=== PATIENT | female | born 1985 | race Caucasian/White ===

== ENCOUNTER → 2020-01-09 07:43 | Outpatient (BNVA) | payer OTHER, SELFPAY | PROVIDERS: PCP Family Medicine; Visit Provider Nurse Practitioner Psychiatric/Mental Health | DX: Z79.899 Other long term (current) drug therapy (principal); F31.64 Bipolar disorder, current episode mixed, severe, with psychotic features; F43.12 Post-traumatic stress disorder, chronic; F41.1 Generalized anxiety disorder; F50.81 Binge eating disorder; F17.210 Nicotine dependence, cigarettes, uncomplicated | CPT/HCPCS: 99213 ==

== ENCOUNTER → 2020-07-03 10:41 | Outpatient (BNVA) | payer OTHER, SELFPAY | PROVIDERS: Visit Provider Nurse Practitioner Psychiatric/Mental Health | DX: Z79.899 Other long term (current) drug therapy (principal) | CPT/HCPCS: 80053; 80061; 83036 ==

== ENCOUNTER → 2021-06-16 09:25 | Outpatient (BNVA) | payer OTHER, SELFPAY | PROVIDERS: Referring Provider Nurse Practitioner; Visit Provider Podiatrist Foot & Ankle Surgery | DX: M79.671 Pain in right foot (principal) | CPT/HCPCS: 73630 ==

== ENCOUNTER 2021-06-20 13:50 | Inpatient (IN) | payer OTHER, SELFPAY ==
[2021-06-20] VITALS (16 sets, daily range): BP systolic 111–143; BP diastolic 65–93; PULSE 73–130; RESP 16–53; TEMP 37.3; O2SAT 70–100
--- NOTE | 2021-06-20 14:17 | XR_ITS ---
WS: [id number] XR chest 1V portable [id number] REASON FOR EXAM: dyspnea FINDINGS: No examination for comparison. The heart and mediastinum are within normal limits. Bilateral diffuse reticular and groundglass opacities in both lungs. The bony thorax is intact. XR/XR chest 1V portable [id number] IMPRESSION: Diffuse pulmonary opacities of unknown chronicity however, highly likely this r epresents subacute pneumonitis.
--- NOTE | 2021-06-20 14:42 | CT_ITS ---
WS: [id number] CTA OF THE CHEST WITH PULMONARY EMBOLISM PROTOCOL TECHNIQUE: High-resolution contrast enhanced CTA of the chest with coronal and sagittal reformatted i mages with pulmonary embolism protocol. MIP images are also reviewed. CLINICAL INFORMATION: chest discomfort - covid COMPARISON: None. DLP: 528.[address] scans at [facility] use at least one of these dose optimization techniques: automated e xposure control; mA and/or kV adjustment per patient size (includes targeted exams where dose is matc hed to clinical indication); or iterative reconstruction. FINDINGS: Some images degraded by body habitus and beam hardening artifact. Diffuse hazy bilateral groundglass infiltrates throughout both lungs compatible with Covid 19 pneumon ia. Proximal main pulmonary arteries are normal. Segmental pulmonary arteries appear normal. No evide nce of proximal pulmonary embolus. Distal vessels are not well evaluated. Reactive mediastinal and peribronchial lymphadenopathy. No axillary lymphadenopathy. Hepatomegaly wit h diffuse fatty infiltration. Gallbladder is contracted. Adrenal glands are normal. CT/CT angio chest PE protcl [id number] IMPRESSION: 1. No evidence of proximal pulmonary embolus. Distal most vessels not well shayan luated. 2. Diffuse bilateral hazy groundglass infiltrates compatible with Lawrence 19 pne umonia. 3. Reactive anterior mediastinal and peribronchial lymphadenopathy. 4. Hepatomegaly with diffuse fatty infiltration.
--- NOTE | 2021-06-20 14:47 | ED_ITS ---
HPI - COVID General: Chief Complaint: COVID symptoms Stated Complaint: COVID + Time Seen by Provider: 06/20/21 14:14 Triage information: Has fever, cough or shortness of breath . Exposure to COVID + person last 14 days History of Present Illness: HPI Narrative: 36-year-old female presents emergency room from the infusion clinic with O2 sat 70% on room air heart rate in 130s with moderate respiratory distress. Patient tested positive for COVID 2 days ago symptoms started 5 days ago. She has a nonproductive cough myalgias low-grade fever diarrhea headache chest congestion. She has previously been vaccinated and had booster for COVID. MD complaint: known COVID positive Prior covid testing: no COVID 19 common symptoms: positive fever(s), chills, dyspnea, fatigue, body aches, nasal congestion and nausea; negative non-productive cough, productive cough, throat pain, vomiting or diarrhea COVID 19 other sytmptoms: negative chest pain COVID Results: No Data to Display Review of Systems Const: Reports: fever(s), chills, body aches, change in appetite, fatigue and malaise ENMT: Reports: nasal discharge and nasal congestion; Denies: throat pain or ear or mastoid pain Card: Reports: dyspnea on exertion; Denies: chest pain, edema or orthopnea Resp: Reports: dyspnea; Denies: productive cough or non-productive cough GI: Reports: nausea; Denies: abdominal pain, vomiting, hematemesis, coffee ground emesis, diarrhea, constipation, bloating, hematochezia or melena : Denies: flank pain, difficulty voiding, dysuria, urinary frequency or urinary urgency Skin/Breast: Denies: rash or pruritus PFSH ED PFSH: Medical History (Updated 07/01/21 @ 07:12 by Kvng Dejesus DO) Asthma Binge eating disorder Bipolar disorder, current episode mixed, severe, without psychotic features Borderline personality disorder Chronic post-traumatic stress disorder Generalized anxiety disorder on prn valium Nicotine dependence, cigarettes, uncomplicated Encourage smoking cessation. Provide nicotine patch Psychiatric care PTSD (post-traumatic stress disorder) Social History Smoking and tobacco status: current every day smoker Physical Exam Const: GENERAL APPEARANCE: cooperative and comfortable ORIENTATION/CONSCIOUSNESS: Yes awake, Yes oriented to person, Yes oriented to place and Yes oriented to time HENMT: COMMON NORMALS: normocephalic, atraumatic and hearing grossly normal bilaterally HEAD & SCALP: normocephalic and atraumatic Resp: AUSCULTATION: crackles and wheezes Cardio: COMMON NORMALS: regular rate, regular rhythm and No murmurs present (Cardio) RATE: regular rate and tachycardic RHYTHM: regular rhythm GI: COMMON NORMALS: Soft to palpation and No hepatosplenomegaly present AUSCULTATION: Yes normoactive bowel sounds PALPATION: Yes Soft to palpation, No Tenderness to palpation present (GI), No Guarding due to palpation present (GI) and Yes No hepatosplenomegaly present Extremity: COMMON NORMALS: normal to inspection, capillary refill normal, no clubbing, cyanosis or edema, no calf tenderness and no pedal edema Neuro: SENSORIUM/ORIENTATION: Yes oriented to person, Yes oriented to place and Yes oriented to time Skin: COMMON NORMALS: no rashes or lesions noted GENERAL SKIN EXAM: no rashes or lesions noted Course Vital Signs: Vital signs: Vital Signs Temperature 98.5 F 06/24/21 17:30 Pulse Rate 87 06/25/21 13:55 Respiratory Rate 18 06/25/21 13:55 Blood Pressure 143/88 06/25/21 08:00 Pulse Oximetry 99 06/25/21 13:55 MDM - COVID MDM Narrative Medical decision making narrative: Patient in acute respiratory distress with O2 sats in 70% on room air she is placed on heated high flow on arrival with some improvement. Discussed with hospitalist will admit for Covid pneumonitis with acute respiratory failure with hypoxia. Medical Records Attestation: I reviewed the patient's medical records. Lab Data Attestation: I reviewed the patient's lab results. Result diagrams: 06/25/21 04:24 06/25/21 04:24 Labs: Lab Results 06/20/21 14:40 Specimen Type Arterial Sample Site Radial, left ABG pH 7.40 (7.35-7.45) ABG pCO2 33.9 mmHg L mmHg (35-45) ABG pO2 91.5 mmHg mmHg (80.0-100.0) ABG HCO3 21.0 mmol/L L mmol/L (22-26) ABG O2 Saturation 98.0 ABG Base Excess -3.3 mmol/L L mmol/L (-2.0-2.0) Antoni Test Pos A-a O2 Gradient 33.3 mmHg H mmHg (5-10) Hematocrit 25.8 % L % (37-47) Hgb O2 Saturation 95.5 % % (95-100) Carboxyhemoglobin 2.0 %THgb %THgb (0.4-20.1) Methemoglobin 0.5 % % (0.4-1.5) Total Hemoglobin 8.4 g/dL L g/dL (12-16) Sodium 149.0 mmol/L H mmol/L (131-143) Potassium 3.4 mmol/L L mmol/L (3.5-5.0) Glucose 168.0 mg/dL H mg/dL (70-115) Ionized Calcium 1.3 mmol/L mmol/L (1.1-1.4) O2 Delivery Device Hag O2 Liters/Min 40.0 % % FiO2 55.0 % % Barrel Lathe Operator Outside ID Cak COVID Results: No Data to Display Discharge Plan Discharge Patient Disposition: Admitted As Inpatient Admit Provider: Margy Quiñonez Clinical Impression: COVID-19, Acute respiratory failure with hypoxia Condition: Stable Coding Level of Care Code ED Veterinary Technologist for [facility]
[2021-06-20 14:53] LABS: ABG PCO2 33.9 mmHg (35-45); Alveolar-Arterial Oxygen Gradi 33.3 mmHg (5-10); Arterial Blood Gas Hematocrit 25.8 % (37-47); Base Excess ABG -3.3 mmol/L (-2.0-2.0); Blood Gas Allen Test Pos; Blood Gas Operator Identificat CAK; Blood Gas Sample Site Radial, left; Blood Gas Sample Type Arterial; HGB O2 Sat 95.5 % (95-100); Ionized Calcium Level - ABG 1.3 mmol/L (1.1-1.4); Methemoglobin 0.5 % (0.4-1.5); Oxygen Device HAG; PO2 ABG 91.5 mmHg (80.0-100.0); Potassium Level - ABG 3.4 mmol/L (3.5-5.0); Total Hemoglobin 8.4 g/dL (12-16)
[2021-06-20] MEDS: iohexol 350 mg/mL 100 mL Btl IV (15:14)
[2021-06-20] MEDS: remdesivir 200 MG in sodium chloride 0.9% (100 ml) 60 ML 100 MG IV (16:43)
[2021-06-20] MEDS: dexamethasone 10 mg/mL INJ 6 MG IVP (16:43)
[2021-06-20 16:54] LABS: Basophils % 0.1 %; Hematocrit 29.7 % (37.0-47.0); Lymphocytes % 6.4 %; Mean Corpuscular HGB Conc 26.9 g/dL (30.0-36.0); Mean Corpuscular Hemoglobin 19.2 pg (28.0-34.0); Mean Corpuscular Volume 71.2 fl (81-99); Mean Platelet Volume 10.5 fL (7.4-10.4); Monocytes # 0.6 10^3/uL (0.2-0.9); Monocytes % 3.9 %; Neutrophils # 14.47 10^3/uL (1.8-7.7); Nucleated Red Blood Cells % 0 %; Platelet Count 378 10^3/cmm (130-400); Red Blood Count 4.17 10^6/uL (4.1-5.3); Red Cell Distribution Width 19.6 % (12.1-15.1); White Blood Count 16.3 10^3/uL (4.0-10.0)
[2021-06-20 17:06] LABS: D Dimer 1.05 ug/mIFEU (0-0.59)
[2021-06-20 17:14] LABS: Alanine Aminotransferase 14 U/L (0-33); Albumin Level 3.7 g/dL (3.5-5.2); Alkaline Phosphatase 91 IU/L (35-105); Anion Gap 18.7 (5-19); Aspartate Amino Transferase 28 U/L (0-32); Blood Urea Nitrogen 10 mg/dL (6-20); C Reactive Protein 119.8 mg/L (0.0-4.9); Calcium 8.1 mg/dL (8.5-10.5); Carbon Dioxide 21 mmol/L (22-29); Chloride 109 mmol/L (98-107); Globulin 2.4 g/dL (1.3-4.6); Glomerular Filtration Rate 114.4 mL/min (90-130); Glucose 125 mg/dL (65-115); Osmolality Calculated 301 mOsm/kg (285-295); Potassium 3.7 mmol/L (3.5-5.1); Sodium 145 mmol/L (136-145); Total Bilirubin 0.2 mg/dL (0.15-1.2); Total Protein 6.1 g/dL (6.6-8.7)
[2021-06-20 17:21] LABS: Procalcitonin 0.13 ng/mL (0-0.5)
--- NOTE | 2021-06-20 18:26 | PC.NURSE ---
Pt placed in prone position with heated high flow
[2021-06-20 18:30] LABS: Lactic Sepsis W/Reflex 1.1 mmol/L (0.5-2.2)
--- NOTE | 2021-06-20 18:33 | PM.HP ---
Providers/Chief Complaint Chief Complaint: COVID + History of Present Illness Josie Rosales is a 36 year old female who was sent to ED from antibody infusion clinic after noted to have sats of 70 percent and tachypnea and tachycardia. Patient apparently has had symptoms for past 5 days. She is vaccinated for COVID. She tested positive 2 days ago. Evaluation in ED reveals hypoxic acute respiratory failure requiring high flow oxygen and CTA consistent with bilateral ground glass opacities , negative for PE- patient requiring admission to ICU. Review of Systems General: Reports: ROS unobtainable due to medical condition Medications/Allergies Home Medications Medication Instructions Recorded Confirmed Last Taken Type lisdexamfetamine 30 mg capsule 30 mg PO QAM 30 Days #30 cap 04/28/21 06/20/21 06/20/21 Rx olanzapine 5 mg disintegrating 5 mg PO DAILY PRN #15 tab 05/22/21 06/20/21 Unknown Rx tablet albuterol sulfate 90 mcg/actuation 2 puff INHALATION Q6H PRN 06/16/21 06/20/21 Unknown History aerosol inhaler gabapentin 400 mg capsule See Rx Instructions .ROUTE 06/16/21 06/20/21 06/20/21 09:00 History .COMPLEX cap ipratropium 0.5 mg-albuterol 3 mg 3 ml INHALATION Q4H PRN 06/16/21 06/20/21 Unknown History (2.5 mg base)/3 mL nebulization soln benzonatate 100 mg capsule 100 mg PO TID PRN 10 Days #30 cap 06/19/21 06/20/21 06/20/21 06:00 Rx Depakote 250 mg PO DAILY@19 06/20/21 06/20/21 06/19/21 History Valium 2 mg PO TID@08,14,20 06/20/21 06/20/21 06/20/21 09:00 History Vitamin D3 1 cap PO DAILY 06/20/21 06/20/21 Unknown History acetaminophen [Tylenol Ex Str 1,000 mg PO Q4H PRN 06/20/21 06/20/21 Unknown History Rapid Release] ascorbic acid (vitamin C) [Vitamin 500 mg PO DAILY 06/20/21 06/20/21 Unknown History C] azithromycin See Rx Instructions .ROUTE .COMPLEX 06/20/21 06/20/21 06/20/21 History 1 tab rx filled 06/19 diclofenac sodium 2 g TOPICAL QID PRN 06/20/21 06/20/21 Unknown History divalproex [Depakote] 500 mg PO DAILY@19 06/20/21 06/20/21 06/19/21 History ibuprofen 800 mg PO Q4H PRN 06/20/21 06/20/21 Unknown History metoprolol tartrate 12.5 mg PO BID PRN 06/20/21 06/20/21 Unknown History prednisone 10 mg PO DAILY 06/20/21 06/20/21 Unknown History prednisone See Rx Instructions .ROUTE .COMPLEX 06/20/21 06/20/21 06/20/21 History 30 mg promethazine-DM 5 - 10 ml PO Q4H PRN 06/20/21 06/20/21 06/20/21 11:00 History topiramate 100 mg PO BID 06/20/21 06/20/21 06/20/21 History zinc 50 mg PO DAILY 06/20/21 06/20/21 Unknown History Allergies Allergy/AdvReac Type Severity Reaction Status Date / Time lithium Allergy Severe Hives, Verified 06/20/21 16:35 Headaches, Throat swells sumatriptan [From Imitrex] Allergy Severe Hives, Verified 06/20/21 16:35 Headaches, Throat swells PFSH Acute PFSH: Medical History (Updated 06/21/21 @ 08:56 by Margy Quiñonez MD) Asthma Binge eating disorder Bipolar disorder, current episode mixed, severe, without psychotic features Borderline personality disorder Chronic post-traumatic stress disorder Generalized anxiety disorder Resume prn valium Nicotine dependence, cigarettes, uncomplicated Encourage smoking cessation. Provide nicotine patch Psychiatric care PTSD (post-traumatic stress disorder) Social History Smoking and tobacco status: current every day smoker Vitals/I&O/Wt Last Vital Signs Pulse 99 06/20/21 15:48 Resp 20 H 06/20/21 15:48 BP 127/78 06/20/21 13:54 Pulse Ox 98 06/20/21 15:48 Physical Exam Narrative: EXAM NARRATIVE: Ill appearing, hypoxic, tachypneic HENMT: COMMON NORMALS: normocephalic and atraumatic Eye: COMMON NORMALS: Equal, round and reactive pupils present, EOMs intact bilaterally and no scleral icterus Neck/C-Spine: COMMON NORMALS: full ROM, no lymphadenopathy, supple and no JVD Resp: EFFORT & INSPECTION: Yes tachypneic and Yes respiratory distress AUSCULTATION: wheezes lower bilaterally Cardio: COMMON NORMALS: regular rate and regular rhythm OTHER: tachycardic GI: COMMON NORMALS: Soft to palpation and no masses Extremity: COMMON NORMALS: normal to inspection, full ROM and no pedal edema Neuro: COMMON NORMALS: patient oriented x3 and moves all extremities Psych: APPEARANCE: Yes grossly normal Skin: COMMON NORMALS: no rashes or lesions noted and no wounds Data : 06/21/21 05:13 06/21/21 05:13 Micro: Microbiology 06/20/21 18:06 Blood Culture - Preliminary Blood SPECIMEN COLLECTED 06/20/21 18:02 Blood Culture - Preliminary Blood SPECIMEN COLLECTED A&P Assessment and plan (1) Acute respiratory failure due to severe acute respiratory syndrome coronavirus 2 (SARS-CoV-2) infection: Patient is 36 year old patient, previously vaccinated for COVID who presented for monoclonal antibody infusion after testing positive for COVID 2 days ago. Patient noted to be markedly hypoxic and ABG reveals ph of 7.40, PCO2 of 33 and PO2 of 91 on Fio2 of 55 percent and 40 L/min She is notably tachypneic and tachycardic Patient at high risk for further deterioration possibly requiring intubation/mechanical ventilation Monitor in ICU Decadron IV Remdesivir Empiric antibiotic coverage with rocephin and zithromax Nebs Bronchodilators Status: Acute (2) Generalized anxiety disorder: Status: Chronic (3) Nicotine dependence, cigarettes, uncomplicated: Nicotine patch Status: Chronic Additional A&P Information Code status- Full DVT prophylaxis- SQ heparin GI- protonix Attestations Medical Necessity Statement*: Patient requring admission for management of acute hypoxic respiratory failure due to severe COVID Coding Level of Care Code Acute Sack Cleaning Hand for [facility] Fwd Exam Comprehensive Diagnoses Acute respiratory failure due to severe acute respiratory syndrome coronavirus 2 (SARS-CoV-2) infection U07.1; J96.00 Generalized anxiety disorder F41.1 Nicotine dependence, cigarettes, uncomplicated F17.210
--- NOTE | 2021-06-20 18:44 | PC.NURSE ---
Pt placed on heated high flow oxygen shortly after arrival into room and has continued through stay. Pt currently in prone position to maintain SpO2 sat levels.
--- NOTE | 2021-06-20 18:47 | PC.NURSE ---
Vital signs printed out and scanned into chart. All vital signs include heated high flow at 40LPM and 60 FiO2.
[2021-06-20] MEDS: acetaminophen 500 mg Tablet 1000 MG PO (23:15)
[2021-06-20] MEDS: gabapentin 400 mg Capsule 1200 MG PO (23:37)
[2021-06-20] MEDS: divalproex DR 250 mg Tablet 750 MG PO (23:37)
[2021-06-20] MEDS: ipratropium-albuterol 3 mL Neb INHALATION (23:56)
[2021-06-21] VITALS (39 sets, daily range): BP systolic 94–169; BP diastolic 53–101; PULSE 69–97; RESP 17–55; TEMP 36.5–37.3; O2SAT 77–100
[2021-06-21] MEDS: benzonatate 100 mg Capsule PO ×3 (01:00→19:47)
[2021-06-21] MEDS: diazePAM 2 mg Tablet PO ×3 (01:07→19:48)
[2021-06-21] MEDS: albuterol 8 gm MDI 2 PUFF INHALATION (02:59)
[2021-06-21] MEDS: acetaminophen 500 mg Tablet 1000 MG PO ×2 (03:13→10:16)
[2021-06-21 05:58] LABS: Basophils % 0.1 %; Hematocrit 26.2 % (37.0-47.0); Hemoglobin 7.1 g/dL (11.5-15.3); Lymphocytes # 1.8 10^3/uL (0.8-4.8); Lymphocytes % 14.8 %; Mean Corpuscular HGB Conc 27.1 g/dL (30.0-36.0); Mean Corpuscular Volume 70.1 fl (81-99); Mean Platelet Volume 10.5 fL (7.4-10.4); Monocytes # 0.5 10^3/uL (0.2-0.9); Monocytes % 4.2 %; Neutrophils # 9.89 10^3/uL (1.8-7.7); Neutrophils % 80.4 %; Nucleated Red Blood Cells % 0 %; Platelet Count 269 10^3/cmm (130-400); Red Blood Count 3.74 10^6/uL (4.1-5.3); Red Cell Distribution Width 19.5 % (12.1-15.1); White Blood Count 12.3 10^3/uL (4.0-10.0)
[2021-06-21 06:21] LABS: Anion Gap 16.6 (5-19); Blood Urea Nitrogen 11 mg/dL (6-20); Calcium 8.4 mg/dL (8.5-10.5); Carbon Dioxide 21 mmol/L (22-29); Chloride 108 mmol/L (98-107); Glomerular Filtration Rate 141.2 mL/min (90-130); Glucose 96 mg/dL (65-115); Osmolality Calculated 293 mOsm/kg (285-295); Potassium 3.6 mmol/L (3.5-5.1); Sodium 142 mmol/L (136-145)
[2021-06-21] MEDS: ipratropium-albuterol 3 mL Neb INHALATION ×2 (07:51→10:51)
[2021-06-21] MEDS: topiramate 100 mg Tablet PO ×2 (08:16→17:14)
[2021-06-21] MEDS: gabapentin 400 mg Capsule 1200 MG PO ×2 (08:16→19:47)
[2021-06-21] MEDS: ascorbic acid 500 mg Tablet PO (08:16)
--- NOTE | 2021-06-21 08:38 | P.PN_ITS ---
Subjective Subjective: Interval history: Patient has c/o rib cage pain and coughing . Feels very tired. No appetite. She is anxious. Medications: Reviewed: Yes Vitals/I&O/Wt Last Vital Signs Temp 99.2 F 06/21/21 04:00 Pulse 75 06/21/21 08:03 Resp 17 06/21/21 07:52 BP 96/68 06/21/21 06:00 Pulse Ox 92 06/21/21 07:52 06/20/21 06/21/21 06/21/21 22:59 06:59 14:59 Intake Total 60 / 60 400 / 460 Balance 60 / 60 400 / 460 Weight last 48 hrs Weight 97.477 kg Weight 95.663 kg Physical Exam Narrative: EXAM NARRATIVE: Ill appearing, anxious, oriented x 3 Const: COMMON NORMALS: patient oriented x3 OTHER: Mild distress HENMT: COMMON NORMALS: normocephalic, atraumatic, hearing grossly normal bilaterally and external ears normal HEAD & SCALP: normocephalic and atraumatic EXTERNAL EAR: Yes external ears normal Eye: COMMON NORMALS: Equal, round and reactive pupils present, EOMs intact bilaterally, conjunctivae normal and no scleral icterus CONJUNCTIVA: Yes conjunctivae normal PUPIL: Yes Equal, round and reactive pupils present Neck/C-Spine: COMMON NORMALS: full ROM, no lymphadenopathy, supple, no JVD and Thyroid normal THYROID: Thyroid normal Chest: COMMONS NORMALS: normal inspection of the chest Resp: EFFORT & INSPECTION: Yes tachypneic AUSCULTATION: rhonchi lower bilaterally Cardio: COMMON NORMALS: no JVD, regular rate and regular rhythm RATE: regular rate RHYTHM: regular rhythm OTHER: tachycardia noted 90-110 GI: COMMON NORMALS: Soft to palpation; negative for No hepatosplenomegaly present PALPATION: Yes Soft to palpation, No Tenderness to palpation present (GI), No Guarding due to palpation present (GI) and No No hepatosplenomegaly present Extremity: COMMON NORMALS: normal to inspection, full ROM and no clubbing, cyanosis or edema Neuro: COMMON NORMALS: patient oriented x3, no focal motor deficits and no sensory deficits noted Psych: COMMON NORMALS: mental status grossly normal, Normal thought process present and speech normal SPEECH: Yes normal speech THOUGHT PROCESS: Normal thought process present Skin: COMMON NORMALS: no rashes or lesions noted, no wounds, turgor normal and no jaundice GENERAL SKIN EXAM: no rashes or lesions noted and turgor normal Data : 06/21/21 05:13 06/21/21 05:13 Micro: Microbiology 06/20/21 18:06 Blood Culture - Preliminary Blood SPECIMEN COLLECTED 06/20/21 18:02 Blood Culture - Preliminary Blood SPECIMEN COLLECTED A&P Assessment and plan (1) Acute respiratory failure due to severe acute respiratory syndrome coronavirus 2 (SARS-CoV-2) infection: Patient is 36 year old female who has received vaccination x 2 for COVID a s well as booster who presented with dyspnea and hypoxia. Patient tested positive for COVID 2 days ago and was going to get antibody infusion when she was noted to be hypoxic with sats of 70 percent and sent to ED. Patient placed on high flow oxygen at 40 L/min and 60 percent FiO2. CTA is negative for PE, however reveals extensive bilateral ground glass opacities consistent with severe COVID Patient started on remdesivir x 5 days, stop date 06/24/21 Decadron 6 mg IV x 10 days, stop date 06/29/21 Rocephin and zithromax for possible superimposed bacterial infection Nebs Monitor closely in ICU. Appropriate isolation precautions Encourage proning if able Status: Acute (2) Nicotine dependence, cigarettes, uncomplicated: Status: Chronic (3) Generalized anxiety disorder: Status: Chronic (4) Chronic iron deficiency anemia: Patient states she has h/o anemia. Underwent hysterectomy for excessive uterine bleeding. No blood in stool. States etiology of anemia not clear. Hemoglobin today is 7.1- will transfuse 1 unit PRBC. Continue to monitor Status: Acute Attestations Medical Necessity Statement*: Patient requiring ongoing hospitalization and care for acute respiratory failure with severe hypoxia due to COVID. Coding Level of Care Code Acute Service Coordinator for [facility] Fwd Exam Comprehensive Diagnoses Acute respiratory failure due to severe acute respiratory syndrome coronavirus 2 (SARS-CoV-2) infection U07.1; J96.00 Nicotine dependence, cigarettes, uncomplicated F17.210 Generalized anxiety disorder F41.1 Chronic iron deficiency anemia D50.9
[2021-06-21] MEDS: cefTRIAXone 2,000 MG in sodium chloride 0.9% (plus) 50 ML 100 MG IV (10:16)
[2021-06-21] MEDS: azithromycin 500 MG in sodium chloride 0.9% 250 ML 250 MG IV (10:57)
[2021-06-21] MEDS: gabapentin 400 mg Capsule 800 MG PO (13:45)
[2021-06-21] MEDS: ibuprofen 200 mg Tablet 400 MG PO (16:11)
[2021-06-21] MEDS: guaiFENesin-dextromethorphan UDC 10 mL 5 ML PO ×2 (16:12→19:47)
[2021-06-21] MEDS: remdesivir 100 MG in sodium chloride 0.9% (100 ml) 80 ML IV (17:14)
[2021-06-21] MEDS: HYDROcodone-acetaminophen 7.5-325 mg Tablet 1 TAB PO ×2 (17:14→21:18)
[2021-06-21] MEDS: sodium chloride 0.9% 100 mL Bag 50 ML IV (17:15)
[2021-06-21] MEDS: divalproex DR 250 mg Tablet 750 MG PO (18:03)
[2021-06-21] MEDS: dexamethasone 10 mg/mL INJ 6 MG IVP (18:04)
[2021-06-22] VITALS (31 sets, daily range): BP systolic 92–124; BP diastolic 52–90; PULSE 61–113; RESP 16–54; TEMP 36.8–37; O2SAT 87–98
[2021-06-22] MEDS: ibuprofen 200 mg Tablet 400 MG PO ×2 (00:53→12:16)
[2021-06-22] MEDS: guaiFENesin-dextromethorphan UDC 10 mL 5 ML PO ×4 (00:54→18:33)
[2021-06-22] MEDS: diazePAM 2 mg Tablet PO ×3 (05:48→21:54)
[2021-06-22] MEDS: HYDROcodone-acetaminophen 7.5-325 mg Tablet 1 TAB PO ×3 (05:48→21:54)
[2021-06-22] MEDS: ipratropium-albuterol 3 mL Neb INHALATION ×2 (07:43→14:06)
[2021-06-22] MEDS: ascorbic acid 500 mg Tablet PO (09:15)
[2021-06-22] MEDS: topiramate 100 mg Tablet PO ×2 (09:15→18:18)
[2021-06-22] MEDS: cefTRIAXone 2,000 MG in sodium chloride 0.9% (plus) 50 ML 100 MG IV (09:16)
[2021-06-22] MEDS: gabapentin 400 mg Capsule 1200 MG PO ×2 (09:16→20:03)
[2021-06-22 09:50] LABS: Basophils % 0.1 %; Hematocrit 34.3 % (37.0-47.0); Hemoglobin 9.4 g/dL (11.5-15.3); Lymphocytes # 1.4 10^3/uL (0.8-4.8); Lymphocytes % 14.4 %; Mean Corpuscular HGB Conc 27.4 g/dL (30.0-36.0); Mean Corpuscular Hemoglobin 20.2 pg (28.0-34.0); Mean Corpuscular Volume 73.8 fl (81-99); Mean Platelet Volume 10.3 fL (7.4-10.4); Monocytes # 0.3 10^3/uL (0.2-0.9); Monocytes % 3.1 %; Neutrophils # 8.11 10^3/uL (1.8-7.7); Neutrophils % 81.4 %; Nucleated Red Blood Cells % 0 %; Platelet Count 279 10^3/cmm (130-400); Red Blood Count 4.65 10^6/uL (4.1-5.3); Red Cell Distribution Width 19.9 % (12.1-15.1)
[2021-06-22] MEDS: azithromycin 500 MG in sodium chloride 0.9% 250 ML 250 MG IV (10:06)
--- NOTE | 2021-06-22 10:42 | PC.NURSE ---
Family updated on pt's progress: Just returned 's , Mejia, phone call. Her mother called about 20 minutes prior, pt gave verbalized permission to update her mother.
[2021-06-22] MEDS: benzonatate 100 mg Capsule PO ×2 (12:16→18:33)
--- NOTE | 2021-06-22 13:14 | P.PN_ITS ---
Subjective Subjective: Interval history: Patient still very tired. Has fatigue and bodyaches. Patient has c/o coughing spells and rib cage pain. She is somewhat anxious. She Medications: Reviewed: Yes Vitals/I&O/Wt Last Vital Signs Temp 98.6 F 06/22/21 08:00 Pulse 80 06/22/21 12:00 Resp 36 H 06/22/21 12:00 BP 92/63 06/22/21 12:00 Pulse Ox 87 L 06/22/21 12:00 06/21/21 06/22/21 06/22/21 22:59 06:59 14:59 Intake Total 1440 / 2100 500 / 2600 700 / 700 Balance 1440 / 2100 500 / 2600 700 / 700 Weight last 48 hrs Weight 97.069 kg Weight 97.477 kg Weight 95.663 kg Physical Exam Narrative: EXAM NARRATIVE: ill appearing, in moderate distress Const: COMMON NORMALS: patient oriented x3 HENMT: COMMON NORMALS: normocephalic and atraumatic HEAD & SCALP: normocephalic and atraumatic Neck/C-Spine: COMMON NORMALS: supple and no JVD Resp: EFFORT & INSPECTION: Yes tachypneic AUSCULTATION: rhonchi lower bilaterally Cardio: COMMON NORMALS: no JVD, regular rate and regular rhythm RATE: regular rate RHYTHM: regular rhythm OTHER: tachycardic with exertion Extremity: COMMON NORMALS: normal to inspection, full ROM and no pedal edema Neuro: COMMON NORMALS: patient oriented x3, no focal motor deficits and no sensory deficits noted Psych: COMMON NORMALS: mental status grossly normal and cooperative Skin: COMMON NORMALS: no rashes or lesions noted, no wounds and turgor normal GENERAL SKIN EXAM: no rashes or lesions noted and turgor normal Data : 06/22/21 08:44 06/21/21 05:13 Micro: Microbiology 06/20/21 18:06 Blood Culture - Preliminary Blood NEGATIVE TO DATE 06/20/21 18:02 Blood Culture - Preliminary Blood NEGATIVE TO DATE A&P Assessment and plan (1) Acute respiratory failure due to severe acute respiratory syndrome coronavirus 2 (SARS-CoV-2) infection: Patient is 36 year old female who has received vaccination x 2 for COVID as well as booster who presented with dyspnea and hypoxia. Patient tested positive for COVID 2 days ago and was going to get antibody inf usion when she was noted to be hypoxic with sats of 70 percent and sent to ED- patient admitted on 06/20/21 on high flow oxygen F CTA is negative for PE, however reveals extensive bilateral ground glass opacities consistent with severe COVID Patient started on remdesivir x 5 days, stop date 06/24/21 Decadron 6 mg IV x 10 days, stop date 06/29/21 Will give Actemra x 1 today if available Rocephin and zithromax for possible superimposed bacterial infection Still requires high FIO2 of 40 percent at 35 L/min Nebs Monitor closely in ICU. Appropriate isolation precautions Encourage proning Status: Acute (2) Nicotine dependence, cigarettes, uncomplicated: Status: Chronic (3) Generalized anxiety disorder: Status: Chronic (4) Chronic iron deficiency anemia: Patient states she has h/o anemia. Underwent hysterectomy for excessive uterine bleeding. No blood in stool. States etiology of anemia not clear. Patient transfused 1 unit of PRBC and hemoglobin is 9.4 today Status: Acute Additional A&P Information Code status- Full DVT prophylaxis- SQ heparin was held due to anemia- will resume GI- protonix Attestations Medical Necessity Statement*: Patient requires continuing hospitalization for acute respiratory failure with hypoxia due to COVID Coding Level of Care Code Acute Pneumatic Deicer Inspector for [facility] Fwd History Detailed Exam Detailed Medical Decision Making Moderate Complexity Diagnoses Acute respiratory failure due to severe acute respiratory syndrome coronavirus 2 (SARS-CoV-2) infection U07.1; J96.00 Nicotine dependence, cigarettes, uncomplicated F17.210 Generalized anxiety disorder F41.1 Chronic iron deficiency anemia D50.9
[2021-06-22] MEDS: gabapentin 400 mg Capsule 800 MG PO (14:03)
[2021-06-22] MEDS: tocilizumab 800 MG in sodium chloride 0.9% (100 ml) 100 ML 100 MG IV (14:04)
[2021-06-22] MEDS: dexamethasone 10 mg/mL INJ 6 MG IVP (18:17)
[2021-06-22] MEDS: remdesivir 100 MG in sodium chloride 0.9% (100 ml) 80 ML IV (18:17)
[2021-06-22] MEDS: divalproex DR 250 mg Tablet 750 MG PO (18:18)
[2021-06-22] MEDS: heparin 5,000 unit/mL INJ 1 mL 5000 UNIT SUBCUT (18:20)
--- NOTE | 2021-06-22 18:47 | PC.NURSE ---
Shift Note: Pt pleasant, alert and cooperative. She has been on high flow NC, Heated high flow and now on Pendant NC at 4lpm/ She is maintaining an O2 sats above 90%, except during coughing which drops to low 80's. She has had a headache on and off most of the shift. She was up to the recliner about 1400. She used BSC once this shift, urine and BM noted. Frequent safety and comfort rounds continue. Orders and/or nursing care completed as indicated. Patient monitored for response to intervention and treatment(s). Education provided includes Tocilizumab, Remdesivir, Tessalon pearls, deep breathing, etc. Patient and/or abrasives sales representative verbalized understanding of medications, ongoing plan of care and pt's progress. Will continue to monitor.
[2021-06-23] VITALS (19 sets, daily range): BP systolic 95–137; BP diastolic 54–89; PULSE 44–88; RESP 16–37; TEMP 36.7–36.9; O2SAT 89–97
[2021-06-23] MEDS: guaiFENesin-dextromethorphan UDC 10 mL 5 ML PO ×2 (02:51→08:10)
[2021-06-23] MEDS: HYDROcodone-acetaminophen 7.5-325 mg Tablet 1 TAB PO ×4 (02:51→22:14)
[2021-06-23] MEDS: heparin 5,000 unit/mL INJ 1 mL 5000 UNIT SUBCUT ×2 (05:42→17:13)
[2021-06-23] MEDS: gabapentin 400 mg Capsule 1200 MG PO ×2 (08:09→22:13)
[2021-06-23] MEDS: cefTRIAXone 2,000 MG in sodium chloride 0.9% (plus) 50 ML 100 MG IV (08:09)
[2021-06-23] MEDS: ascorbic acid 500 mg Tablet PO (08:09)
[2021-06-23] MEDS: topiramate 100 mg Tablet PO ×2 (08:09→17:12)
[2021-06-23] MEDS: benzonatate 100 mg Capsule PO (08:09)
[2021-06-23] MEDS: diazePAM 2 mg Tablet PO ×2 (08:10→17:11)
[2021-06-23] MEDS: ipratropium-albuterol 3 mL Neb INHALATION (08:43)
[2021-06-23] MEDS: azithromycin 500 MG in sodium chloride 0.9% 250 ML 250 MG IV (09:09)
[2021-06-23] MEDS: OLANZapine 5 mg ODT PO (09:49)
--- NOTE | 2021-06-23 11:21 | P.PN_ITS ---
Subjective Subjective: Interval history: She is coughing. She is having a headache. No nausea vomiting or diarrhea. Previously had diarrhea but resolved. Vitals/I&O/Wt Last Vital Signs Temp 98.4 F 06/23/21 04:00 Pulse 88 06/23/21 08:53 Resp 17 06/23/21 08:43 BP 111/63 06/23/21 05:00 Pulse Ox 93 06/23/21 08:43 06/22/21 06/23/21 06/23/21 22:59 06:59 14:59 Intake Total 480 / 1181.667 Output Total 201 / 201 250 / 451 Balance 279 / 980.667 -250 / 730.667 Weight last 48 hrs Weight 97.069 kg Physical Exam Const: COMMON NORMALS: no acute distress and patient oriented x3 HENMT: COMMON NORMALS: oropharynx normal Neck/C-Spine: COMMON NORMALS: no JVD Resp: COMMON NORMALS: normal respiratory effort AUSCULTATION: wheezes Cardio: COMMON NORMALS: no JVD, regular rhythm, S1 normal heart sound present, S2 normal heart sound present and No murmurs present (Cardio) RHYTHM: regular rhythm HEART SOUNDS: S1 normal heart sound present and S2 normal heart sound present GI: COMMON NORMALS: Normal to inspection, nondistended, normoactive bowel sounds present, Soft to palpation and non-tender PALPATION: Yes Soft to palpation Extremity: COMMON NORMALS: no joint enlargement and no pedal edema Neuro: COMMON NORMALS: patient oriented x3 and moves all extremities Skin: COMMON NORMALS: no rashes or lesions noted GENERAL SKIN EXAM: no rashes or lesions noted Data : 06/22/21 08:44 06/21/21 05:13 A&P Assessment and plan (1) Acute respiratory failure due to severe acute respiratory syndrome coronavirus 2 (SARS-CoV-2) infection: She is gradually improving in terms of oxygenation. Still significant cough. Escalate antitussives. Increase dose of Robitussin. Add scheduled benzonatate. Continue breathing treatments. Continue care on medical floor. Continue Decadron, remdesivir. Has been on ceftriaxone and azithromycin. Will check procalcitonin. Leukocytosis normalized. Wean off oxygen as tolerating. Received tocilizumab. Patient is 36 year old female who has received vaccination x 2 for COVID as well as booster who presented with dyspnea and hypoxia. Patient tested positive for COVID 2 days ago and was going to get antibody infusion when she was noted to be hypoxic with sats of 70 percent and sent to ED- patient admitted on 06/20/21 on high flow oxygen F CTA is negative for PE, however reveals extensive bilateral ground glass opacities consistent with severe COVID Status: Acute (2) Nicotine dependence, cigarettes, uncomplicated: Status: Chronic (3) Generalized anxiety disorder: Status: Chronic (4) Chronic iron deficiency anemia: Patient states she has h/o anemia. Underwent hysterectomy for excessive uterine bleeding. No blood in stool. States etiology of anemia not clear. Patient transfused 1 unit of PRBC and hemoglobin is 9.4 today Status: Acute Additional A&P Information Code status- Full DVT prophylaxis- SQ heparin GI- protonix Attestations 2 Medical Necessity Statement*: Continue admission for assessment management of hypoxic respiratory failure secondary to severe COVID-19. 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
[2021-06-23] MEDS: ibuprofen 200 mg Tablet 400 MG PO (11:57)
[2021-06-23] MEDS: guaiFENesin-dextromethorphan UDC 10 mL PO ×2 (11:57→17:12)
[2021-06-23] MEDS: OLANZapine 10 mg TABLET PO ×2 (11:57→22:14)
[2021-06-23 12:12] LABS: Procalcitonin 0.09 ng/mL (0-0.5)
[2021-06-23] MEDS: benzonatate 100 mg Capsule 200 MG PO ×2 (14:13→22:12)
[2021-06-23] MEDS: gabapentin 400 mg Capsule 800 MG PO (14:13)
[2021-06-23] MEDS: remdesivir 100 MG in sodium chloride 0.9% (100 ml) 80 ML IV (17:12)
[2021-06-23] MEDS: dexamethasone 10 mg/mL INJ 6 MG IVP (18:31)
[2021-06-23] MEDS: divalproex DR 250 mg Tablet 750 MG PO (18:31)
[2021-06-23 20:00] LABS: Glucose Point of Care 340 mg/dL (70-110)
--- NOTE | 2021-06-23 20:17 | PC.NURSE ---
Shift Note:Pt has sat up in the chair most of the day. She has been on Pendant oxygen at 6lpm. , her O2 sats have stayed above 89% even during coughing with an immediate jump back to mid 90's when coughing done. She was crying this am getting frustrated. Her mood much more stabilized after starting her back on her home Zyprexa dosage. Increasing the cough syrup to 10mg has significantly slowed down her coughing. She was able to rest very well this afternoon. Frequent safety and comfort rounds continue. Orders and/or nursing care completed as indicated. Patient monitored for response to intervention and treatment(s). Education provided includes Guafenisen, Zyprexa, Remdesivir, dexamethasone, Tessalon Pearls . Patient and/or patient intake representative verbalized understanding. Will continue to monitor.
[2021-06-24] VITALS (31 sets, daily range): BP systolic 93–150; BP diastolic 43–91; PULSE 45–91; RESP 15–41; TEMP 36.5–36.9; O2SAT 91–100; BMI 37.8
[2021-06-24] MEDS: guaiFENesin-dextromethorphan UDC 10 mL PO ×2 (01:18→08:51)
[2021-06-24 05:08] LABS: Basophils % 0.2 %; Eosinophils % 0.5 %; Hematocrit 34.4 % (37.0-47.0); Hemoglobin 9.1 g/dL (11.5-15.3); Lymphocytes # 1.4 10^3/uL (0.8-4.8); Lymphocytes % 23.4 %; Mean Corpuscular HGB Conc 26.5 g/dL (30.0-36.0); Mean Corpuscular Hemoglobin 19.9 pg (28.0-34.0); Mean Corpuscular Volume 75.1 fl (81-99); Mean Platelet Volume 10.4 fL (7.4-10.4); Monocytes # 0.1 10^3/uL (0.2-0.9); Monocytes % 1.8 %; Neutrophils # 4.22 10^3/uL (1.8-7.7); Nucleated Red Blood Cells % 0.3 %; Platelet Count 309 10^3/cmm (130-400); Red Blood Count 4.58 10^6/uL (4.1-5.3)
[2021-06-24 05:17] LABS: D Dimer 1.65 ug/mIFEU (0-0.59)
[2021-06-24 05:28] LABS: Alanine Aminotransferase 18 U/L (0-33); Albumin Level 3.3 g/dL (3.5-5.2); Alkaline Phosphatase 90 IU/L (35-105); Anion Gap 16.2 (5-19); Aspartate Amino Transferase 29 U/L (0-32); Blood Urea Nitrogen 13 mg/dL (6-20); Calcium 8.3 mg/dL (8.5-10.5); Carbon Dioxide 22 mmol/L (22-29); Chloride 108 mmol/L (98-107); Globulin 2.7 g/dL (1.3-4.6); Glomerular Filtration Rate 141.2 mL/min (90-130); Glucose 117 mg/dL (65-115); Osmolality Calculated 295 mOsm/kg (285-295); Potassium 4.2 mmol/L (3.5-5.1); Sodium 142 mmol/L (136-145); Total Bilirubin 0.2 mg/dL (0.15-1.2)
[2021-06-24] MEDS: heparin 5,000 unit/mL INJ 1 mL 5000 UNIT SUBCUT ×2 (05:54→18:51)
[2021-06-24] MEDS: gabapentin 400 mg Capsule 1200 MG PO ×2 (08:50→19:51)
[2021-06-24] MEDS: topiramate 100 mg Tablet PO ×2 (08:50→18:49)
[2021-06-24] MEDS: ascorbic acid 500 mg Tablet PO (08:51)
[2021-06-24] MEDS: benzonatate 100 mg Capsule 200 MG PO ×3 (08:51→19:51)
[2021-06-24] MEDS: diazePAM 2 mg Tablet PO (08:51)
[2021-06-24] MEDS: HYDROcodone-acetaminophen 7.5-325 mg Tablet 1 TAB PO ×2 (08:51→20:00)
[2021-06-24] MEDS: OLANZapine 10 mg TABLET PO ×2 (08:51→19:50)
[2021-06-24] MEDS: ipratropium-albuterol 3 mL Neb INHALATION (09:34)
[2021-06-24] MEDS: gabapentin 400 mg Capsule 800 MG PO (14:38)
[2021-06-24] MEDS: divalproex DR 250 mg Tablet 750 MG PO (18:49)
[2021-06-24] MEDS: remdesivir 100 MG in sodium chloride 0.9% (100 ml) 80 ML IV (18:50)
--- NOTE | 2021-06-24 19:36 | PC.NURSE ---
Shift Note Pt has rested well today. Much less coughing noted. She has received PRN Guafenisen once this shift. She is down to 4lpm on Pendant cannula. SHe is maintaining her sats above 90% even when she exerts hersef getting up to BSC. Frequent safety and comfort rounds continue. Orders and/or nursing care completed as indicated. Patient monitored for response to intervention and treatment(s). Education provided includes Energy conservation, Valium. Patient and/or provider service representative verbalized understanding on progress, medications, and plan of care. Will continue to monitor.
[2021-06-24] MEDS: guaiFENesin-codeine UDC 10 mL 5 ML PO (20:00)
[2021-06-24] MEDS: albuterol 8 gm MDI 2 PUFF INHALATION (20:05)
--- NOTE | 2021-06-24 20:17 | PM.PN ---
Subjective Subjective: Interval history: She is gradually continue to improve. Dyspnea improving. She is still bothered by cough. Vitals/I&O/Wt Last Vital Signs Temp 98.5 F 06/24/21 17:30 Pulse 68 06/24/21 20:01 Resp 17 06/24/21 20:01 BP 93/53 06/24/21 19:30 Pulse Ox 98 06/24/21 20:01 06/24/21 06/24/21 06/24/21 06:59 14:59 22:59 Intake Total 120 / 2410 1100 / 1100 200 / 1300 Output Total 400 / 850 350 / 350 Balance -280 / 1560 1100 / 1100 -150 / 950 Weight last 48 hrs Weight 96.933 kg Physical Exam Const: COMMON NORMALS: no acute distress and patient oriented x3 HENMT: COMMON NORMALS: oropharynx normal Neck/C-Spine: COMMON NORMALS: no JVD Resp: COMMON NORMALS: normal respiratory effort AUSCULTATION: wheezes Cardio: COMMON NORMALS: no JVD, regular rhythm, S1 normal heart sound present, S2 normal heart sound present and No murmurs present (Cardio) RHYTHM: regular rhythm HEART SOUNDS: S1 normal heart sound present and S2 normal heart sound present GI: COMMON NORMALS: Normal to inspection, nondistended, normoactive bowel sounds present, Soft to palpation and non-tender PALPATION: Yes Soft to palpation Extremity: COMMON NORMALS: no joint enlargement and no pedal edema Neuro: COMMON NORMALS: patient oriented x3 and moves all extremities Skin: COMMON NORMALS: no rashes or lesions noted GENERAL SKIN EXAM: no rashes or lesions noted Data : 06/24/21 04:37 06/24/21 04:37 A&P Assessment and plan (1) Acute respiratory failure due to severe acute respiratory syndrome coronavirus 2 (SARS-CoV-2) infection: Oxygenation gradually improving. Doing well with reservoir cannula. Appears to be decreasing down to 5 L nasal cannula. Completing remdesivir course this evening. Continue Decadron. Continue antitussives, supportive care. Overflow in the ICU. Received tocilizumab. Patient is 36 year old female who has received vaccination x 2 for COVID as well as booster who presented with dyspnea and hypoxia. Patient tested positive for COVID 2 days ago and was going to get antibody infusion when she was noted to be hypoxic with sats of 70 percent and sent to ED- patient admitted on 06/20/21 on high flow oxygen F CTA is negative for PE, however reveals extensive bilateral ground glass opacities consistent with severe COVID Status: Acute (2) Nicotine dependence, cigarettes, uncomplicated: Status: Chronic (3) Generalized anxiety disorder: Status: Chronic (4) Chronic iron deficiency anemia: Patient states she has h/o anemia. Underwent hysterectomy for excessive uterine bleeding. No blood in stool. States etiology of anemia not clear. Patient transfused 1 unit of PRBC and hemoglobin is 9.4 today Status: Acute Additional A&P Information Code status- Full DVT prophylaxis- SQ heparin GI- protonix Attestations Medical Necessity Statement*: Continue hospitalization for management of severe COVID-19, gradually improving hypoxia. 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
[2021-06-25] VITALS (24 sets, daily range): BP systolic 117–143; BP diastolic 62–88; PULSE 46–121; RESP 16–35; O2SAT 87–100; BMI 37.4
[2021-06-25] MEDS: HYDROcodone-acetaminophen 7.5-325 mg Tablet 1 TAB PO ×2 (04:00→08:44)
[2021-06-25] MEDS: guaiFENesin-codeine UDC 10 mL 5 ML PO ×2 (04:00→09:43)
[2021-06-25 05:03] LABS: Basophils % 0.2 %; Eosinophils % 0.2 %; Hematocrit 36.1 % (37.0-47.0); Hemoglobin 9.8 g/dL (11.5-15.3); Lymphocytes # 1.2 10^3/uL (0.8-4.8); Mean Corpuscular HGB Conc 27.1 g/dL (30.0-36.0); Mean Corpuscular Hemoglobin 20.4 pg (28.0-34.0); Mean Corpuscular Volume 75.1 fl (81-99); Mean Platelet Volume 10.5 fL (7.4-10.4); Monocytes # 0.1 10^3/uL (0.2-0.9); Monocytes % 1.8 %; Neutrophils # 3.59 10^3/uL (1.8-7.7); Nucleated Red Blood Cells % 0.4 %; Platelet Count 309 10^3/cmm (130-400); Red Blood Count 4.81 10^6/uL (4.1-5.3); Red Cell Distribution Width 21.9 % (12.1-15.1); White Blood Count 5.1 10^3/uL (4.0-10.0)
[2021-06-25 05:24] LABS: D Dimer 1.56 ug/mIFEU (0-0.59)
[2021-06-25 05:26] LABS: Alanine Aminotransferase 15 U/L (0-33); Albumin Level 3.5 g/dL (3.5-5.2); Alkaline Phosphatase 94 IU/L (35-105); Anion Gap 19.8 (5-19); Aspartate Amino Transferase 19 U/L (0-32); Blood Urea Nitrogen 15 mg/dL (6-20); Calcium 8.4 mg/dL (8.5-10.5); Carbon Dioxide 19 mmol/L (22-29); Chloride 105 mmol/L (98-107); Globulin 2.8 g/dL (1.3-4.6); Glomerular Filtration Rate 141.2 mL/min (90-130); Glucose 160 mg/dL (65-115); Osmolality Calculated 294 mOsm/kg (285-295); Potassium 3.8 mmol/L (3.5-5.1); Sodium 140 mmol/L (136-145); Total Bilirubin 0.2 mg/dL (0.15-1.2); Total Protein 6.3 g/dL (6.6-8.7)
[2021-06-25] MEDS: heparin 5,000 unit/mL INJ 1 mL 5000 UNIT SUBCUT (05:34)
--- NOTE | 2021-06-25 05:45 | PC.NURSE ---
Shift Note Frequent safety and comfort rounds continue. Orders and/or nursing care completed as indicated. Patient monitored for response to intervention and treatment(s). Education provided includes medication and oxygen requirements. Patient verbalizes understanding of teaching. Patient had an uneventful shift, she remains on 4L nasal pendant, and sat up in the chair all evening. Reported headaches throughout the night, PRN medication was administered. Set patient up for self bed bath this morning. Will continue to monitor.
[2021-06-25] MEDS: topiramate 100 mg Tablet PO (07:45)
[2021-06-25] MEDS: ascorbic acid 500 mg Tablet PO (07:46)
[2021-06-25] MEDS: benzonatate 100 mg Capsule 200 MG PO (07:46)
[2021-06-25] MEDS: OLANZapine 10 mg TABLET PO (07:46)
[2021-06-25] MEDS: gabapentin 400 mg Capsule 1200 MG PO (07:46)
[2021-06-25] MEDS: diazePAM 2 mg Tablet PO (10:11)
--- NOTE | 2021-06-25 10:45 | P.DS_ITS ---
Discharge Providers Date of Admission: 06/20/21 16:34 Date of Discharge: June 25, 2021 Attending Provider at Admission: Margy Quiñonez MD Attending Provider at Discharge: Amish Jamison Diagnoses at Discharge Discharge Diagnosis (1) Acute respiratory failure due to severe acute respiratory syndrome coronavirus 2 (SARS-CoV-2) infection: Status: Acute (2) Nicotine dependence, cigarettes, uncomplicated: Status: Chronic Permanent problem details: Encourage smoking cessation. Provide nicotine patch (3) Generalized anxiety disorder: Status: Chronic Permanent problem details: on prn valium (4) Chronic iron deficiency anemia: Status: Acute Reason for Visit Reason for Visit: COVID + Hospital Course Hospital Course 36-year-old lady with history of asthma among other comorbidities who was admitted after being hypoxic and infusion center for monoclonal antibodies for COVID-19, treated for severe COVID-19 with hypoxic respiratory failure. On admission assessed by CTA which showed no evidence of proximal PE with distal most vessels not well evaluated. Diffuse hazy groundglass infiltrates, reactive anterior mediastinal and peribronchial LAD. Hepatomegaly with diffuse fatty infiltration noted incidentally as well. She completed course of remdesivir, Decadron, received a dose of Actemra. Empirically treated with ceftriaxone and azithromycin. Procalcitonin subsequently was normal, antibiotics stopped, but has been producing some green phlegm, so will complete remaining azithromycin at home. She has been gradually improving, with oxygen requirement coming down from heated high flow cannula 60%, 40 L, down to ox pendant, 4 L, and this morning is doing well at rest turned down to 2 L. With exertion likely needed more. Home O2 assessment is requested. She is still having some headache which she describes as foggy sensation. She otherwise has been tolerating oral intake. Has been trying to mobilize, and feels safe returning home to continue gradual mobilization there. Understands to avoid overexertion. Understands to monitor her oxygenation, and to seek medical attention in case of worsening of condition or concerning symptoms. On presentation noted also acute on chronic anemia, hemoglobin 7.1, was given 1 unit PRBC transfusion without further hemoglobin decreased, 9.4-9.1-9.8. Please follow-up on anemia. Encourage smoking cessation. Physical Exam Const: COMMON NORMALS: no acute distress and patient oriented x3 HENMT: COMMON NORMALS: oropharynx normal Neck/C-Spine: COMMON NORMALS: no JVD Resp: COMMON NORMALS: normal respiratory effort and clear to auscultation bi laterally EFFORT & INSPECTION: Yes able to speak in complete sentences AUSCULTATION: clear to auscultation bilaterally OTHER: Deep inspiration triggers cough. Cardio: COMMON NORMALS: no JVD, regular rhythm, S1 normal heart sound present, S2 normal heart sound present and No murmurs present (Cardio) RHYTHM: regular rhythm HEART SOUNDS: S1 normal heart sound present and S2 normal heart sound present GI: COMMON NORMALS: Normal to inspection, nondistended, normoactive bowel sounds present, Soft to palpation and non-tender PALPATION: Yes Soft to palpation Extremity: COMMON NORMALS: no joint enlargement GENERAL: Yes edema (trace) Neuro: COMMON NORMALS: patient oriented x3 and moves all extremities Skin: COMMON NORMALS: no rashes or lesions noted GENERAL SKIN EXAM: no rashes or lesions noted Discharge Data Data Completed and Pending: Completed Studies During Hospitalization Category Date Time Status CT angio chest PE protcl [id number] Stat Cat Scan 06/20/21 14:42 Completed XR chest 1V ranjeet ble [id number] Stat Exams 06/20/21 14:17 Completed Pending at discharge Category Date Time Status Blood Culture Sta t Lab 06/20/21 18:06 Results Complete Blood Co unt w/Auto AM LABS Lab 06/26/21 04:00 Ordered Comprehensive Met abolic Panel AM LA BS Lab 06/26/21 04:00 Ordered D Dimer AM LABS Lab 06/26/21 04:00 Ordered Labs from last 24 hours 06/25/21 06/25/21 06/25/21 04:24 04:24 04:24 WBC 5.1 RBC 4.81 Hgb 9.8 L Hct 36.1 L MCV 75.1 L MCH 20.4 L MCHC 27.1 L RDW 21.9 H Plt Count 309 MPV 10.5 H Neut % (Auto) 71.0 Lymph % (Auto) 23.0 [place] % (Auto) 1.8 Eos % (Auto) 0.2 Baso % (Auto) 0.2 Neut # (Auto) 3.59 Lymph # (Auto) 1.2 [place] # (Auto) 0.1 L Eos # (Auto) 0.0 Baso # (Auto) 0.0 Nucleated RBC % (a uto) 0.4 Nucleated RBCs # 0.0 D-Dimer 1.56 H Sodium 140 Potassium 3.8 Chloride 105 Carbon Dioxide 19 L Anion Gap 19.8 H BUN 15 Creatinine 0.5 GFR Calculation 141.2 H Glucose 160 H Calculated Osmolal ity 294 Calcium 8.4 L Total Bilirubin 0.2 AST 19 ALT 15 Alkaline Phosphata se 94 Total Protein 6.3 L Albumin 3.5 Globulin 2.8 Vitals: Last Vital Signs Temp 98.5 F 06/24/21 17:30 Pulse 63 06/25/21 10:00 Resp 35 H 06/25/21 10:00 BP 143/88 06/25/21 08:00 Pulse Ox 98 06/25/21 10:00 Discharge Plan Discharge Patient Disposition: Home Condition: Stable Prescriptions: New Robitussin Cough-Chest Alber DM 10-200 mg capsule 1 tab-cap PO Q6H PRN (Reason: cough) Qty: 60 RF: 0 Continued gabapentin 400 mg capsule See Rx Instructions .ROUTE .COMPLEX RF: 0 albuterol sulfate [ProAir HFA] 90 mcg/actuation HFA aerosol inhaler 2 puff inhalation Q6H PRN (Reason: Shortness Of Breath) RF: 0 ipratropium-albuterol 0.5 mg-3 mg(2.5 mg base)/3 mL solution for nebulization 3 ml inhalation Q4H PRN (Reason: Shortness Of Breath) RF: 0 benzonatate [Tessalon Perles] 100 mg capsule 100 mg PO TID PRN (Reason: cough) 10 Days Qty: 30 RF: 0 olanzapine [Zyprexa Zydis] 5 mg tablet,disintegrating 5 mg PO DAILY PRN (Reason: acute severe agitation) Qty: 15 RF: 1 Vyvanse 30 mg capsule 30 mg PO QAM 30 Days Qty: 30 RF: 0 olanzapine [Zyprexa] 10 mg tablet 10 mg PO BID 90 Days Qty: 180 RF: 2 divalproex [Depakote] 250 mg tablet,delayed release (DR/EC) 250 mg PO .7 pm Qty: 30 RF: 6 divalproex [Depakote] 500 mg tablet,delayed release (DR/EC) 500 mg PO .7 pm 90 Days Qty: 90 RF: 2 clonidine HCl 0.1 mg tablet 0.2 mg PO .QHS Qty: 180 RF: 2 benztropine 0.5 mg tablet 0.5 mg PO .QHS 90 Days Qty: 90 RF: 2 promethazine-DM 6.25-15 mg/5 mL syrup 5 - 10 ml PO Q4H PRN (Reason: Cough) RF: 0 prednisone 10 mg tablet See Rx Instructions .ROUTE .COMPLEX RF: 0 azithromycin 250 mg tablet See Rx Instructions .ROUTE .COMPLEX RF: 0 Tylenol Ex Str Rapid Release 500 mg Tablet 1,000 mg PO Q4H PRN (Reason: Pain) RF: 0 Vitamin C 500 mg Tablet 500 mg PO DAILY RF: 0 ibuprofen 200 mg Tablet 800 mg PO Q4H PRN (Reason: Pain) RF: 0 zinc 50 mg Tablet 50 mg PO DAILY RF: 0 topiramate 100 mg tablet 100 mg PO BID RF: 0 metoprolol tartrate 25 mg Tablet 12.5 mg PO BID PRN (Reason: pt states takes prn ) RF: 0 diclofenac sodium 1 % gel 2 g TOPICAL QID PRN (Reason: Pain) RF: 0 Vitamin D3 1 cap PO DAILY RF: 0 Valium 2 mg tablet 2 mg PO TID@08,14,20 RF: 0 Discontinued prednisone 10 mg tablet 10 mg PO DAILY RF: 0 Discharge Orders: Discharge Order (Routine); Ordered 06/25/21 Ordered By: Amish Jamison Referrals: IDALMIS Martel @ [facility] [Other] - 4-7 days () Discharge Diet: Usual diet Discharge Activity: Increase activity as tolerated, Limit activity as instructed and Oxygen as instructed Patient Instructions: How to Stop Smoking (GEN), Cigarette Smoking and Your Health (GEN), Using Oxygen at Home (GEN), Hypoxia (GEN), Droplet Precautions (GEN), COVID-19 (Coronavirus Disease 2019) (GEN), Opioid Safety Activity Restrictions/Additional Instructions: Continue oxygen at home, target saturation 90% or above. With exertion you may need higher oxygen flow rates. If oxygen at rest of staying in the high 90s, you can decrease it by 1 L at a time, recheck your oxygen saturation, and stay at the current flow rate if saturation remains good. If your oxygen saturations fall below 88%, increase oxygen flow by 1-2 L and recheck oxygen saturation. If your oxygen level stays low despite increasing oxygen flow, despite taking a rest after activity, or you are progressively feeling more short of breath, having extreme exhaustion, chest pain, or other concerning symptoms, please seek medical attention. Please stop smoking. Please never smoke in the vicinity of oxygen of oxygen due to severe fire hazard risk of airway tesfaye and other injuries. Please complete prednisone taper and antibiotic course as provided. Use flutter valve. Please follow-up with your primary doctor with regards to anemia. Your last hemoglobin was 9.8. Discharge Attestations Time Spent in Discharge Care*: greater than 30 min Quality Metrics Clinical Quality Measures During this hospital stay, did patient experience: None Coding Level of Care Code Acute [facility] note Diagnoses Acute respiratory failure due to severe acute respiratory syndrome coronavirus 2 (SARS-CoV-2) infection U07.1; J96.00 Nicotine dependence, cigarettes, uncomplicated F17.210 Generalized anxiety disorder F41.1 Chronic iron deficiency anemia D50.9
[2021-06-25] MEDS: acetaminophen 325 mg Tablet 650 MG PO (13:00)
[2021-06-25] MEDS: gabapentin 400 mg Capsule 800 MG PO (13:00)
== END 2021-06-25 13:56 | disposition home or self-care (01) | DRG 177 ==
LOC: ER 14:17 → ICU 19:54
PROVIDERS: Admitting Provider Internal Medicine; Emergency Provider Family Medicine; Visit Provider Internal Medicine
DX: U07.1 COVID-19 (principal); J80 Acute respiratory distress syndrome; F31.63 Bipolar disorder, current episode mixed, severe, without psychotic features; F17.210 Nicotine dependence, cigarettes, uncomplicated; J45.909 Unspecified asthma, uncomplicated; F60.3 Borderline personality disorder; F43.12 Post-traumatic stress disorder, chronic; F41.8 Other specified anxiety disorders; D50.0 Iron deficiency anemia secondary to blood loss (chronic)
CPT/HCPCS: 12345; 36415; 36416; 36430; 71045; 71275; 80048; 80051; 80053; 82330; 82805; 82962; 83605; 84145; 85025; 85378; 86140; 86850; 86900; 86920; 87040; 94640; 96365; 96372; 96375; 99285; J0456; J0696; J1100; J1644; J3262; J3535; J7050; P9016; Q9967

== ENCOUNTER → 2021-08-05 07:45 | Outpatient (BNVA) | payer MEDICARE, SELFPAY | PROVIDERS: Visit Provider Nurse Practitioner Psychiatric/Mental Health | DX: F50.81 Binge eating disorder (principal); F31.63 Bipolar disorder, current episode mixed, severe, without psychotic features; F43.12 Post-traumatic stress disorder, chronic; F60.3 Borderline personality disorder; F41.1 Generalized anxiety disorder | CPT/HCPCS: 99214 ==

== ENCOUNTER → 2021-08-29 08:58 | Outpatient (BNVA) | payer OTHER, SELFPAY | PROVIDERS: Visit Provider Internal Medicine Critical Care Medicine | DX: J96.00 Acute respiratory failure, unspecified whether with hypoxia or hypercapnia (principal); J45.909 Unspecified asthma, uncomplicated; J96.11 Chronic respiratory failure with hypoxia; Z86.16 Personal history of COVID-19 | CPT/HCPCS: 71046 ==

== ENCOUNTER → 2021-08-29 10:20 | Outpatient (BNVA) | payer OTHER, SELFPAY | PROVIDERS: Visit Provider Internal Medicine Critical Care Medicine | DX: J45.909 Unspecified asthma, uncomplicated (principal); J96.00 Acute respiratory failure, unspecified whether with hypoxia or hypercapnia; J96.11 Chronic respiratory failure with hypoxia | CPT/HCPCS: 36415; 80053; 80061; 80164; 82785; 83036; 85025; 86003 ==